=== PATIENT | female | born 1990 | race American Indian/Alaskan Native ===

== ENCOUNTER 2017-10-15 12:40 | Emergency (ER) | payer MEDICAID ==
--- NOTE | 2017-10-15 12:59 | ED PDOC ---
Arrival/HPI - General Chief Complaint: Shortness Of Breath Time Seen by Provider: 10/15/17 12:54 Historian: Patient - History of Present Illness Narrative History of Present Illness (Text): 10/15/17 12:54 27 y/o female, pmh including asthma, nkda, c/o coughing and wheezing with lt. thigh pain x 2 days. Pt. stated that she has chronic asthma, coughing started about 2 days ago and wheezing today, received 2 doses of albuterol nebulizer at home prior to arrival which she feels better. Lt. thigh pain started after long hours of walking and standing when she started her new job this week, not on control, no palpitation, no pleuritic pain, no chest pain, feels like her usual asthma exacerbation, no numbness or tingling, no other medical or psychological complaints. Past Medical History - Provider Review Nursing Documentation Reviewed: Yes - Cardiac Hx Cardiac Disorders: Yes Hx Hypertension: Yes - Pulmonary Hx Respiratory Disorders: Yes Hx Asthma: Yes - Neurological Hx Neurological Disorder: No - HEENT Hx HEENT Disorder: No - Renal Hx Renal Disorder: No - Endocrine/Metabolic Hx Endocrine Disorders: No - Hematological/Oncological Hx Blood Disorders: No - Integumentary Hx Dermatological Disorder: No - Musculoskeletal/Rheumatological Hx Musculoskeletal Disorders: No - Gastrointestinal Hx Gastrointestinal Disorders: No - Genitourinary/Gynecological Hx Genitourinary Disorders: Yes Other/Comment: FIBROIDS - Psychiatric Hx Psychophysiologic Disorder: No Hx Substance Use: No - Surgical History Other/Comment: PARATHYROID, FIBROID - Anesthesia Hx Anesthesia: Yes Family/Social History - Physician Review Nursing Documentation Reviewed: Yes Family/Social History: Unknown Family HX Smoking Status: Light Smoker < 10 Cigarettes Daily Hx Alcohol Use: Yes Frequency of alcohol use: Socially Hx Substance Use: No Allergies/Home Meds Allergies/Adverse Reactions: Allergies No Known Allergies Allergy (Verified 10/15/17 12:46) Home Medications: Home Meds Medication Instructions Recorded Confirmed Albuterol 0.083% [Albuterol 0.083% 1 vial IH QID PRN 10/15/17 10/15/17 Inhal Katilin (2.5 mg/3 ml) UD] Albuterol HFA [Ventolin HFA 90 1 puff IH QID PRN 10/15/17 10/15/17 mcg/actuation (8 g)] Review of Systems - Review of Systems Constitutional: absent: Fatigue Respiratory: Cough, Sputum, Wheezing. absent: SOB Cardiovascular: absent: Chest Pain, Palpitations Gastrointestinal: absent: Abdominal Pain, Nausea, Vomiting Musculoskeletal: Myalgias. absent: Arthralgias, Back Pain Skin: absent: Rash, Pruritis Neurological: absent: Headache, Dizziness Psychiatric: absent: Anxiety, Depression, Suicidal Ideation Physical Exam Vital Signs Reviewed: Yes Vital Signs Temp Pulse Resp BP Pulse Ox 10/15/17 16:19 98.5 F 78 20 143/99 H 98 10/15/17 12:53 18 10/15/17 12:40 98.5 F 95 H 18 137/103 H 96 Temperature: Afebrile Blood Pressure: Hypertensive Pulse: Regular Respiratory Rate: Normal Appearance: Positive for: Well-Appearing, Non-Toxic, Comfortable Pain Distress: Mild Mental Status: Positive for: Alert and Oriented X 3 - Systems Exam Head: Present: Atraumatic, Normocephalic Pupils: Present: PERRL Extroacular Muscles: Present: EOMI Conjunctiva: Present: Normal Ears: Present: NORMAL TM, Normal Canal. No: Erythema Mouth: Present: Moist Mucous Membranes Nose (External): Present: Atraumatic. No: Abrasion, Contusion, Laceration Nose (Internal): Present: Normal Inspection, No Active Bleeding. No: Rhinorrhea , Septal Hematoma, Epistaxis Neck: Present: Normal Range of Motion, Trachea Midline. No: Meningeal Signs, MIDLINE TENDERNESS, Paraspinal Tenderness, Lymphadenopathy Respiratory/Chest: Present: Clear to Auscultation, Good Air Exchange, Wheezes ( Lt. lower lobe), Rhonchi (Lt. lower lobe). No: Respiratory Distress, Accessory Muscle Use, Rales, Retracting, Tachypneic Cardiovascular: Present: Regular Rate and Rhythm, Normal S1, S2. No: Murmurs Abdomen: No: Tenderness, Distention, Peritoneal Signs, Rebound, Guarding Back: Present: Normal Inspection. No: CVA Tenderness, Midline Tenderness, Paraspinal Tenderness Upper Extremity: Present: Normal Inspection, Normal ROM, NORMAL PULSES, Neurovascularly Intact, Capillary Refill < 2s. No: Cyanosis, Edema, Tenderness , Swelling, Erythema, Temperature Abnormalties, Deformity Lower Extremity: Present: Normal Inspection, NORMAL PULSES, Normal ROM, Neurovascularly Intact, Capillary Refill < 2 s. No: Edema, CALF TENDERNESS, Cyanosis, Saray's Sign, Tenderness, Swelling, Deformity, Temperature Abnormalties Neurological: Present: GCS=15, CN II-XII Intact, Speech Normal Skin: Present: Warm, Dry, Normal Color. No: Rashes Psychiatric: Present: Alert, Oriented x 3, Normal Insight, Normal Concentration Medical Decision Making ED Course and Treatment: 10/15/17 13:05 - test -Duoneb/prednisone/motrin -Chest xray -LLE Venuous doppler -Observe and reassess 10/15/17 16:42 - is negative -Chest xray show no active disease -LLE Venuous Doppler: as per preliminary report, there is no acute DVT -Wheezing resolved, feeling much better, asymptomatic, all pain resolved, request to be discharged home. -Discharge home with prednisone, albuterol, claritin, zithromax, motrin, stay hydrated, follow up with your own pmd and orthopedic/lens silverer within 2 days , return to the ER for any new or worsening signs or symptoms. - RAD Interpretation Radiology Orders: 10/15/17 13:00 CHEST TWO VIEWS (PA/LAT) [RAD] Stat DUPLEX LOWER EXTRM VEIN LEFT [US] Stat Chest xray: HISTORY: cough and wheezing x 2 days COMPARISON: No prior. TECHNIQUE: Chest PA and lateral FINDINGS: LUNGS: No active pulmonary disease. PLEURA: No significant pleural effusion identified. No pneumothorax apparent. CARDIOVASCULAR: Normal. OSSEOUS STRUCTURES: No significant abnormalities. VISUALIZED UPPER ABDOMEN: Normal. OTHER FINDINGS: None. IMPRESSION: No active disease. LLE Venuous Doppler: as per preliminary report, there is no acute DVT but there is casiano cyst size approx. 1.4cm Fine Wire Drawer: Radiologist - Medication Orders Current Medication Orders: Discontinued Medications Albuterol/Ipratropium (Duoneb 3 Mg/0.5 Mg (3 Ml) Ud) 3 ml IH STAT STA Stop: 10/15/17 13:01 Last Admin: 10/15/17 13:16 Dose: 3 ml Ibuprofen (Motrin Tab) 600 mg PO STAT STA Stop: 10/15/17 13:05 Last Admin: 10/15/17 13:16 Dose: 600 mg MAR Pain/Vitals Document 10/15/17 13:16 GMD (Rec: 10/15/17 13:16 GMD [id number]) Location Pain Location Body Site Bone Ipratropium [place] (Atrovent) 0.5 mg IH STAT STA Stop: 10/15/17 15:06 Last Admin: 10/15/17 15:37 Dose: 0.5 mg Prednisone (Prednisone Tab) 60 mg PO STAT ONE Stop: 10/15/17 13:01 Last Admin: 10/15/17 13:16 Dose: 60 mg - PA / RODEO CLOWN / Resident Statement /DO has reviewed & agrees with the documentation as recorded. Disposition/Present on Arrival - Present on Arrival Any Indicators Present on Arrival: No History of DVT/PE: No History of Uncontrolled Diabetes: No Urinary Catheter: No History of Decub. Ulcer: No History Surgical Site Infection Following: None - Disposition Have Diagnosis and Disposition been Completed?: Yes Diagnosis: Asthma exacerbation, Thigh pain Disposition: HOME/ ROUTINE Disposition Time: 13:06 Patient Plan: Discharge Patient Problems: Current Active Problems Problem Status Onset Casiano cyst Acute Asthma exacerbation Acute Condition: IMPROVED Additional Instructions: -Discharge home with prednisone, albuterol, claritin, zithromax, motrin, stay hydrated, follow up with your own pmd and orthopedic/lens silverer within 2 days , return to the ER for any new or worsening signs or symptoms. Prescriptions: Albuterol HFA [Ventolin HFA 90 mcg/actuation (8 g)] 2 puff IH I3ROSDI #1 in Azithromycin [Zithromax] 1 tab PO DAILY #6 tab Ibuprofen [Motrin] 600 mg PO QID PRN #30 tab PRN Reason: Other Loratadine [Claritin] 10 mg PO DAILY #10 tab Prednisone 50 mg PO DAILY #5 tablet Referrals: Jeannine Hernández MD [Primary Care Provider] - Follow up with primary Sage Blakely MD [Staff Provider] - Follow up with primary Forms: WORK NOTE
[2017-10-15 13:00] VITALS: TEMP 98.5
[2017-10-15] MEDS ORDERED: Albuterol-Ipratrop 3 mg / 0.5 (3 ml) UD IH STA (13:00)
--- NOTE | 2017-10-15 14:44 | RAD ---
HISTORY: cough and wheezing x 2 days COMPARISON: No prior. TECHNIQUE: Chest PA and lateral FINDINGS: LUNGS: No active pulmonary disease. PLEURA: No significant pleural effusion identified. No pneumothorax apparent. CARDIOVASCULAR: Normal. OSSEOUS STRUCTURES: No significant abnormalities. VISUALIZED UPPER ABDOMEN: Normal. OTHER FINDINGS: None. IMPRESSION: No active disease.
[2017-10-15] MEDS ORDERED: Ipratropium 0.02% Inhal Soln (0.5 mg/2.5 ml) UD IH STA (15:05)
--- NOTE | 2017-10-15 15:42 | US ---
PROCEDURE: Left lower extremity venous US HISTORY: Leg pain and swelling. Evaluate for DVT. PHYSICIAN(S): Serafin Klein MD. TECHNIQUE: Duplex sonography and color-flow Doppler with graded compression were used to evaluate the deep venous system of the left lower extremity. FINDINGS: The visualized deep venous system of the left lower extremity is sonographically normal and compressible. Normal wave forms and augmentation are seen. There is no sonographic evidence for deep venous thrombosis in the visualized segments of the left lower extremity. IMPRESSION: 1. No sonographic evidence for deep venous thrombosis in the visualized segments of the left lower extremity.
[2017-10-15 16:20] VITALS: BP 143/99
[2017-10-15 16:57] VITALS: PULSE 74; RESP 18; O2SAT 99
== END 2017-10-15 16:57 | disposition home or self-care (01) ==
LOC: MERGE 12:40 → ED 12:40
DX: J45.901 Unspecified asthma with (acute) exacerbation (principal); M79.652 Pain in left thigh; F17.210 Nicotine dependence, cigarettes, uncomplicated; I10 Essential (primary) hypertension

== ENCOUNTER 2017-11-30 13:13 | Emergency (ER) | payer MEDICAID ==
[2017-11-30 14:13] VITALS: BP 120/82; PULSE 66; RESP 16; TEMP 98.6; O2SAT 99
[2017-11-30 14:23] VITALS: BMI 28.8
== END 2017-11-30 14:23 | disposition left against medical advice (07) ==
LOC: ED 13:13
DX: Z02.89 Encounter for other administrative examinations (principal); M54.9 Dorsalgia, unspecified

== ENCOUNTER 2017-11-30 14:17 | Emergency (ER) | payer MEDICAID ==
[2017-11-30 14:23] VITALS: BP 143/87; PULSE 72; RESP 20; TEMP 98.5; O2SAT 99; BMI 28.8
--- NOTE | 2017-11-30 14:53 | ED PDOC ---
Arrival/HPI - General Chief Complaint: Female Genitourinary Time Seen by Provider: 11/30/17 14:37 Historian: Patient EM Caveat: Acuity of Condition - History of Present Illness Narrative History of Present Illness (Text): 11/30/17 14:46 Pt is a 27 yr old female with a PMH of left 6 cm uterine fibroid who presents today with left flank pain and bladder fullness x 1 day. Pt states that cramping is worse on standing and movement and better while sitting and resting. Has associated left low back pain and headache and subjective fever. Denies nausea, vomiting, diarrhea, vaginal bleeding or discharge, dysuria, hematuria or any other complaints. LMP November 17 x 3 days with typical dysmenorrhea. Surgical fibroid removal pending scheduling as per patient. Time/Duration: 24 hours Symptom Onset: Gradual Symptom Course: Worsening Quality: Aching, Pressure, Cramping Severity Level: 6 Activities at Onset: Rest Context: Standing, Walking, Exertion Past Medical History - Provider Review Nursing Documentation Reviewed: Yes - Travel History Have you recently traveled outside [place] w/in the past 3 mons?: No - Infectious Disease Hx of Infectious Diseases: None - Reproductive Menopause: No - Cardiac Hx Cardiac Disorders: No - Pulmonary Hx Respiratory Disorders: Yes Hx Asthma: Yes - Neurological Hx Neurological Disorder: No - HEENT Hx HEENT Disorder: No - Renal Hx Renal Disorder: No - Endocrine/Metabolic Hx Endocrine Disorders: No - Hematological/Oncological Hx Blood Disorders: No - Integumentary Hx Dermatological Disorder: No - Musculoskeletal/Rheumatological Hx Musculoskeletal Disorders: No - Gastrointestinal Hx Gastrointestinal Disorders: No - Genitourinary/Gynecological Hx Genitourinary Disorders: No - Psychiatric Hx Psychophysiologic Disorder: No Hx Substance Use: No - Surgical History Other/Comment: tooth extraction. Stone removed from my parathyroid gland - Anesthesia Hx Anesthesia: Yes - Suicidal Assessment Feels Threatened In Home Enviroment: No Family/Social History - Physician Review Nursing Documentation Reviewed: Yes Family/Social History: Unknown Family HX Smoking Status: Heavy Smoker > 10 Cigarettes Daily Hx Alcohol Use: Yes (occasional) Hx Substance Use: No Allergies/Home Meds Allergies/Adverse Reactions: Allergies No Known Allergies Allergy (Verified 03/20/16 16:40) Review of Systems - Review of Systems Constitutional: Normal, Fevers Eyes: Normal ENT: Normal Respiratory: Normal. absent: SOB Cardiovascular: Normal. absent: Chest Pain Gastrointestinal: Abdominal Pain, Nausea. absent: Constipation, Diarrhea, Vomiting, Appetite Changes Genitourinary Female: Normal. absent: Dysuria, Frequency, Hematuria, Urine Output Changes, Vaginal Bleeding, Vaginal Discharge, Other Musculoskeletal: Back Pain Skin: Normal Neurological: Normal Endocrine: Normal Hemo/Lymphatic: Normal Psychiatric: Normal Physical Exam Vital Signs Reviewed: Yes Vital Signs Temp Pulse Resp BP Pulse Ox 11/30/17 14:18 98.5 F 72 20 143/87 99 Temperature: Afebrile Blood Pressure: Normal Pulse: Regular Respiratory Rate: Normal Appearance: Positive for: Well-Appearing, Non-Toxic, Comfortable Pain Distress: Moderate Mental Status: Positive for: Alert and Oriented X 3 - Systems Exam Head: Present: Atraumatic, Normocephalic Neck: Present: Normal Range of Motion Respiratory/Chest: Present: Clear to Auscultation, Good Air Exchange. No: Respiratory Distress, Accessory Muscle Use Cardiovascular: Present: Regular Rate and Rhythm, Normal S1, S2. No: Murmurs Abdomen: Present: Tenderness (LLQ), Normal Bowel Sounds. No: Distention, Peritoneal Signs, Rebound, Guarding, McBurney's Point Tender, Rovsing's Sign Present Back: Present: CVA Tenderness, Paraspinal Tenderness. No: Pain with Leg Raise Upper Extremity: Present: Normal Inspection. No: Cyanosis, Edema Lower Extremity: Present: Normal Inspection, NORMAL PULSES, Normal ROM, Capillary Refill < 2 s. No: Edema Neurological: Present: GCS=15, CN II-XII Intact, Speech Normal Skin: Present: Warm, Dry, Normal Color. No: Rashes Psychiatric: Present: Alert, Oriented x 3, Normal Insight, Normal Concentration Medical Decision Making ED Course and Treatment: 11/30/17 14:53 Impression Pt is a 27 yr old female with a PMH of left 6 cm uterine fibroid who presents today with left flank pain and bladder fullness x 1 day. On exam, (+) left CVA tenderness and flank pain Plan UA to r/o UTI poc hcg to r/o assess and dispo Progress note 11/30/17 16:13 UA (+) for leuk esterase and blood; wbc still pending and pt waiting in FT macrobid and pyridium stat home on both and f/u with PMD in 2 days Advised pt that may receive call to treat specific bacteria/organisms in urinary tract - Lab Interpretations Lab Results: Lab Results 11/30/17 15:00: Urine Color Yellow, Urine Appearance Clear, Urine pH 6.0, Ur Specific [place] 1.020, Urine Protein Negative, Urine Glucose (UA) Negative, Urine Ketones Trace H, Urine Blood Small H, Urine Nitrate Negative, Urine Bilirubin Negative, Urine Urobilinogen 0.2, Ur Leukocyte Esterase Trace H, Urine RBC 2 - 5, Urine WBC 2 - 5, Ur Epithelial Cells 1 - 3, Urine Bacteria Small, Urine Other Trichomonas - Medication Orders Current Medication Orders: Discontinued Medications Nitrofurantoin Macrocrystals (Macrobid) 100 mg PO STAT STA PRN Reason: Protocol Stop: 11/30/17 16:04 Last Admin: 11/30/17 17:06 Dose: 100 mg Phenazopyridine HCl (Pyridium) 200 mg PO STAT STA Stop: 11/30/17 16:06 Last Admin: 11/30/17 17:06 Dose: 200 mg Disposition/Present on Arrival - Present on Arrival Any Indicators Present on Arrival: Yes History of DVT/PE: No History of Uncontrolled Diabetes: No Urinary Catheter: No History of Decub. Ulcer: No History Surgical Site Infection Following: None - Disposition Have Diagnosis and Disposition been Completed?: Yes Diagnosis: UTI (urinary tract infection) Disposition: HOME/ ROUTINE Disposition Time: 16:06 Patient Plan: Discharge Condition: GOOD Discharge Instructions (ExitCare): Urinary Tract Infections in Adults Additional Instructions: CLARA LEAL, thank you for letting us take care of you today. Your provider was Valdemar Lr MD and RASHID Packer and you were treated for Urinary Tract Infection. The emergency medical care you received today was directed at your acute symptoms. If you were prescribed any medication, please fill it and take as directed. It may take several days for your symptoms to resolve. Return to the Emergency Department if your symptoms worsen, do not improve, or if you have any other problems. Please follow up with your Primary Care Doctor in 2 days. Take the antibiotic as directed for 7 days and take pyridium for bladder pain, as needed. Please contact your doctor or call one of the physicians/clinics you have been referred to that are listed on the Patient Visit Information form that is included in your discharge packet. Bring any paperwork you were given at discharge with you along with any medications you are taking to your follow up visit. Our treatment cannot replace ongoing medical care by a primary care provider outside of the emergency department. Thank you for allowing the [facility] team to be part of your care today. If you had a blood, urine, or wound culture: It will take several days for the results, if any change in treatment is needed we will contact you. Prescriptions: Nitrofurantoin Macrocrystals [Macrobid] 100 mg PO BID 7 Days #14 cap Phenazopyridine [Pyridium] 200 mg PO TID 5 Days #15 tab Forms: [email or web address] ([place]), WORK NOTE
[2017-11-30 15:57] LABS: URINE BILIRUBIN NEGATIVE (NEGATIVE); URINE BLOOD SMALL (NEGATIVE); URINE GLUCOSE (UA) NEGATIVE (NEGATIVE); URINE LEUKOCYTE ESTERASE TRACE Leu/uL (NEGATIVE); URINE PROTEIN NEGATIVE mg/dL (<30 mg/dL); URINE UROBILINOGEN 0.2 E.U./dL (<1 E.U./dL)
[2017-11-30 16:00] LABS: URINE APPEARANCE CLEAR (CLEAR); URINE COLOR YELLOW (YELLOW)
[2017-11-30 16:52] LABS: URINE BACTERIA SMALL (NEG)
== END 2017-11-30 17:36 | disposition home or self-care (01) ==
LOC: ED 14:17
DX: N39.0 Urinary tract infection, site not specified (principal)